=== PATIENT | female | born 2000 | race Caucasian/White ===

== ENCOUNTER 2021-02-10 21:51 | Emergency (ER) | payer BC ==
--- OUTSIDE RECORDS SUMMARY | 2021-02-10 21:53 | XMS REPORT | Continuity of Care Document ---
:2000 Author Organization [facility] t Address [address] [place] [address] Care Team Providers Name Role Phone Blas Yuliana LUU Primary Care Physician Miguel ARENAS Attending Clinician Payers Payer Name Policy Type Policy Number Effective Date Expiration Date S ource Problems Condition Condition Condition Status Onset Resolution Last Treating Co mments Source Name Details Category Date Date Treatment Clinician Date Encounter Encounter Disease Active Uni vers for for 10-04 ity of [place] of 00 Medical contracept contracept Br anch beckie pills beckie pills Screening Screening Disease Active Uni vers examinatio examinatio 10-04 it y of n for STD n [place] ([place] (sexually 00 Medi vivi transmitte transmitte Br anch d disease) d disease) Allergies, Adverse Reactions, Alerts This patient has no known allergies or adverse reactions. Social History Social Habit Start Date Stop Date Quantity Comments Source Exposure to Not sure [facility] SARS-CoV-2 [facility] (event) [place] Tobacco use and 2020-10-04 2020-10-04 Never used Universit y of exposure 00:00:00 00:00:00 [facility] Alcohol intake 2020-10-04 2020-10-04 Ex-drinker [facility] 00:00:00 00:00:00 (finding) [facility] Sex Assigned At [birth year] Universit y of 00:00:00 00:00:00 [facility] Smoking Status Start Date Stop Date Source Never smoker [facility] Medications Ordered Filled Start Stop Current Ordering Indication Dosage Frequency Signature Comments Components Source Medication Medication Date Date Medication? Clinician (SIG) Name Name amoxicillin Yes [id number] 500mg Take 1 Univers 500 mg 9-05 capsule by ity of capsule 00:00: mouth 3 [place] 00 (three) Medical times Branch daily. phenazopyri Yes [id number] 200mg Take 1 Univers dine 200 mg 9-05 tablet by ity of tablet 00:00: mouth 3 [place] 00 (three) Medical times Branch daily. norgestimat Yes [id number] 1{tbl} Take 1 Univers e-ethinyl 5-04 tablet by ity o f estradioL 00:00: mouth [place] (TRI-LO-SPR 00 daily. Medica l INTEC) [place] 0.18/0.215/ 0.25 mg-25 mcg tablet Vital Signs Vital Name Observation Time Observation Value Comments Source Systolic blood 2021-02-05 18:01:00 122 mm[Hg] Univer sity of [facility] Diastolic blood 2021-02-05 18:01:00 76 mm[Hg] [facility] rate 2021-02-05 18:01:00 76 /min [facility] Body temperature 2021-02-05 18:01:00 36.94 [facility] Respiratory rate 2021-02-05 18:01:00 18 /min [facility] hospital Body weight 2021-02-05 18:01:00 58.968 kg [facility] Oxygen saturation in 2021-02-05 18:01:00 99 /min [facility] Arterial blood by [facility] Pulse oximetry Branch Procedures Procedure Date / Time Performed Performing Clinician Ryann esteves ASSIGNMENT OF BENEFITS 2021-02-05 18:54:10 Doctor Unassigned, No [facility] POCT TEST 2021-02-05 18:07:00 Nathen Rivera [facility] URINALYSIS 2021-02-05 18:06:00 Nathen Rivera [place] [facility] NOTICE OF PRIVACY 2021-02-05 18:05:55 Doctor Unassigned, No Univ [facility] PRACTICES Name Medical Branch CONSENT/REFUSAL FOR 2021-02-05 17:57:03 Doctor Unassigned, No [facility] AND Name Medical Branch TREATMENT Encounters Start End Encounter Admission Attending Care Care Encounter Source Date/Time Date/Time Type Type Clinicians Facility Department ID 2021-02-05 2021-02-05 Emergency Rivera, [facility] [id number] [facility] 13:08:00 13:57:00 Nathen Herrera [id number] i ty [facility] [id number] [facility] [id number] [facility] 084 Branch Results Test Description Test Time Test Comments Results Result Comments Source URINALYSIS 2021-02-05 18:40:20 Test Item Value Reference Range Interpretation Comme nts APPEARANCE (test code = Hazy Clear A 5380751298) COLOR (test code = 0399363252) Yellow Yellow PH (test code = 0681618434) 4.8-8.0 SP GRAVITY (test code = 1.003-1.030 H 9071510450) GLU U QUAL (test code = Normal Normal 3869791246) BLOOD (test code = 5300554564) 1+ Negative A KETONES (test code = 3904885090) Negative Negative PROTEIN (test code = 2887-8) 30 mg/dL Negative A UROBILIN (test code = Normal Normal 8976602587) BILIRUBIN (test code = Negative Negative 6375950382) NITRITE (test code = 0182322657) Negative Negative LEUK SAHARA (test code = 250/uL Negative A 5245712735) RBC/HPF (test code = 0429856328) See_Comment H [Automated message] The system which ge nerated this result transmit sammie reference range: 0 - 3 HP F. The reference range was not used to interpret th is result as normal/abnormal . WBC/HPF (test code = 1497630726) See_Comment H [Automated message] The system which ge nerated this result transmit sammie reference range: 0 - 5 HP F. The reference range was not used to interpret th is result as normal/abnormal . BACTERIA (test code = Few Negative A 1529803061) MUCOUS (test code = 3802468588) Marked Negative LPF A AMORPHOUS (test code = Rare Rare HPF 4007788059) SQ EPITH (test code = HPF 8615642807) Lab Interpretation (test code = Abnormal 84198-6) [id number] 18:07:00 Test Item Value Reference Range Interpretation Comments POCT PREG (test code = 1605) negative On board controls acceptable with present C Line (test code = 3574) POCT PREG LOT # (test code = 3575) [id number] POCT PREG TEST DATE (test 06/02/2022 code = 3576) Lab Interpretation (test code = Normal 07406-8) [facility]
--- NOTE | 2021-02-10 23:40 | ER ---
Nurse's Notes [facility] Name: Edita Matos Age: 20 yrs Sex: Female : 2000 Arrival Date: 02/10/2021 Time: 21:54 Bed Waiting Private MD: Diagnosis: Coronavirus infection, unspecified Presentation: 02/10 22:21 Chief complaint: Patient states: she has symptoms of Covid loss of smell and taste, bb stuffy nose, body aches x 5 days. Coronavirus screen: Client presents with at least one sign or symptom that may indicate coronavirus-19. Standard/surgical mask placed on the client. Ebola Screen: No symptoms or risks identified at this time. Initial Sepsis Screen: Does the patient meet any 2 criteria? No. Patient's initial sepsis screen is negative. Does the patient have a suspected source of infection? No. Patient's initial sepsis screen is negative. Risk Assessment: Do you want to hurt yourself or someone else? Patient reports no desire to harm self or others. Onset of symptoms was February 05, 2021. 22:21 Method Of Arrival: Ambulatory 22:21 Acuity: DON 4 bb Triage Assessment: 22:22 General: Appears in no apparent distress. Behavior is calm, cooperative. Pain: Denies bb pain. EENT: Reports nasal congestion. Neuro: Level of Consciousness is awake, alert, obeys commands, Oriented to person, place, time, situation. Cardiovascular: Capillary refill < 3 seconds Patient's skin is warm and dry. Respiratory: Respiratory effort is even, unlabored, Respiratory pattern is regular. GI: No signs and/or symptoms were reported involving the gastrointestinal system. Derm: Skin is pink, warm \T\ dry. Musculoskeletal: Circulation, motion, and sensation intact. Reports body aches. 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 - Social history:: Smoking status: Patient denies any tobacco usage or history of. Screenin:37 Abuse screen: Denies threats or abuse. Nutritional screening: No deficits noted. bb Tuberculosis screening: No symptoms or risk factors identified. Fall Risk None identified. Assessment: 23:34 Reassessment: Patient is alert, oriented x 3, equal unlabored respirations, skin bb warm/dry/pink. pt seen by Wally MAGANA in triage for results and recommendations. Pt refused administration of Regen-Cov verbalized understanding of and agrees to plan of care discharge instructions given. Vital Signs: 22:21 BP 120 / 85; Pulse 94; Resp 18 S; Temp 98.4(O); Pulse Ox 100% on R/A; Weight 58.97 kg bb (R); Height 5 ft. 2 in. (157.48 cm) (R); 23:36 BP 118 / 80; Pulse 83; Resp 18 S; Pulse Ox 100% on R/A; bb 22:21 Body Mass Index 23.78 (58.97 kg, 157.48 cm) bb ED Course: 21:54 Patient arrived in ED. 21:55 Wally Phillips PA is PHCP. [facility] 21:55 Abelardo Tam MD is Attending Physician. [facility] 22:22 Triage completed. bb 22:22 Arm band placed on Patient placed in waiting room, Patient notified of wait time. Covid bb and flu swab sent to lab. 22:24 COVID swab sent to lab. Flu and/or RSV swab sent to lab. bb 23:37 Patient has correct armband on for positive identification. bb 23:37 No provider procedures requiring assistance completed. Patient did not have IV access bb during this emergency room visit. Administered Medications: No medications were administered Outcome: 23:37 Discharged to home ambulatory. bb 23:37 Condition: stable 23:37 Discharge instructions given to patient, Instructed on discharge instructions, follow up and referral plans. Demonstrated understanding of instructions, follow-up care. 23:39 Discharge ordered by . [facility] 23:53 Patient left the ED. bb Signatures: Wally Phillips PA PA jmm Ballard, Brenda, RN RN Kathy Meza
--- NOTE | 2021-02-10 23:40 | EDPHYS ---
Physician Documentation [facility] Name: Edita Matos Age: 20 yrs Sex: Female : 2000 Arrival Date: 02/10/2021 Time: 21:54 Bed Waiting Private MD: ED Physician Abelardo Tam HPI: 02/10 23:37 This 20 yrs old Female presents to ER via Ambulatory with complaints of S/S jmm OF COVID. 23:37 The patient or guardian reports cough. Onset: The symptoms/episode began/occurred jmm gradually, 5 day(s) ago. Associated signs and symptoms: Pertinent positives: fever, nausea. The patient has not experienced similar symptoms in the past. States symptoms developed approximately 5 days ago. Patient developed concern after she lost her sense of smell. Patient is unimmunized for coronavirus. 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 - Social history:: Smoking status: Patient denies any tobacco usage or history of. ROS: 23:37 Constitutional: Positive for body aches, chills. jmm 23:37 ENT: Positive for sinus congestion. 23:37 Respiratory: Positive for cough. 23:37 All other systems are negative. Exam: 23:37 Constitutional: This is a well developed, well nourished patient who is awake, alert, jmm and in no acute distress. Head/Face: atraumatic. Eyes: EOMI, no conjunctival erythema appreciated ENT: Moist Mucus Membranes Neck: Trachea midline, Supple Chest/axilla: Normal chest wall appearance and motion. Cardiovascular: Regular rate and rhythm. No edema appreciated Respiratory: Normal respirations, no respiratory distress appreciated Abdomen/GI: Non distended, soft Back: Normal ROM Skin: General appearance color normal MS/ Extremity: Moves all extremities, no obvious deformities appreciated, no edema noted to the lower extremities Neuro: Awake and alert, normal gait Psych: Behavior is normal, Mood is normal, Patient is cooperative and pleasant Vital Signs: 22:21 BP 120 / 85; Pulse 94; Resp 18 S; Temp 98.4(O); Pulse Ox 100% on R/A; Weight 58.97 kg bb (R); Height 5 ft. 2 in. (157.48 cm) (R); 23:36 BP 118 / 80; Pulse 83; Resp 18 S; Pulse Ox 100% on R/A; bb 22:21 Body Mass Index 23.78 (58.97 kg, 157.48 cm) MDM: 23:37 Patient medically screened. [facility] 23:38 Data reviewed: vital signs, nurses notes. Counseling: I had a detailed discussion with jm the patient and/or guardian regarding: the historical points, exam findings, and any diagnostic results supporting the discharge/admit diagnosis, lab results, the need for outpatient follow up, to return to the emergency department if symptoms worsen or persist or if there are any questions or concerns that arise at home. ED course: Patient is alert nontoxic in appearance in the ED. No signs respite distress. Patient declined monoclonal antibodies/Regeneron. Patient was given strict return precautions. Patient understood and agrees plan of care. Patient advised to quarantine for another 5 days.. 02/10 22:24 Order name: Flu bb 02/10 23:43 Order name: COVID-19/FLU A+B EDMS Administered Medications: No medications were administered Disposition Summary: 02/10/21 23:39 Discharge Ordered Location: Home [facility] Condition: Stable [facility] Diagnosis - Coronavirus infection, unspecified [facility] Followup: [facility] - With: Private Physician - When: 5 - 6 days - Reason: Recheck today's complaints, Continuance of care, Re-evaluation by your physician Discharge Instructions: - Discharge Summary Sheet [facility] - COVID-19 [facility] Forms: - Medication Reconciliation Form [facility] - Thank You Letter [facility] - Antibiotic Education [facility] - Prescription Opioid Use [facility] Prescriptions: - albuterol sulfate 90 mcg/actuation Inhalation HFA aerosol inhaler - inhale 2 puff by INHALATION route every 4 hours; 1 Pump; Refills: 0, Product [facility] Selection Permitted Addendum: 02/13/2021 06:43 Co-signature as Attending Physician, Abelardo Tam MD I agree with the assessment and t w4 plan of care. Signatures: Dispatcher [employer] EDMS Wally Phillips PA PA jmm Ballard, Brenda, RN RN Abelardo Ibarra MD MD tw4 Corrections: (The following items were deleted from the chart) 02/10 22:38 22:06 CORONAVIRUS+ ordered. EDMS EDMS 22:39 22:25 Influenza Screen (A ordered. EDMS EDMS
[2021-02-10 23:43] LABS: SARS-COV-2 RT PCR POSITIVE (NEGATIVE)
[2021-02-10 23:57] VITALS: TEMP 98.4; O2SAT 100
[2021-02-10 23:58] VITALS: BP 118/80
== END 2021-02-10 23:53 | disposition home or self-care (01) ==
LOC: ER 21:51
DX: U07.1 COVID-19 (principal)
CPT/HCPCS: 0240U; 99283

== ENCOUNTER 2021-10-11 09:13 | Emergency (ER) | payer BC ==
--- OUTSIDE RECORDS SUMMARY | 2021-10-11 09:16 | XMS REPORT | Continuity of Care Document ---
:2000 Author Organization [facility] t Address [address] [place] [address] Care Team Providers Name Role Phone Yuliana Aguirre Primary Care Physician Yuliana Aguirre Attending Clinician Ultrasound Attending Clinician Unavailable Nella Rowland MD Attending Clinician NELLA ROWLAND Attending Clinician Unavailable Yuliana BLAS Attending Clinician Unavailable Payers Payer Name Policy Type Policy Number Effective Date Expiration Date S ource Problems Condition Condition Condition Status Onset Resolution Last Treating Co mments Source Name Details Category Date Date Treatment Clinician Date Supervisio Supervisio Disease Active N PI:183 n of high n of high 18 1318 781 risk risk 00:00: , , 00 antepartum antepartum Primigravi Primigravi Disease Active N PI:183 da in da in 09-18 [id number] first first 00:00: trimester trimester 00 Encounter Encounter Disease Active NPI :183 for for 10-04 [id number] surveillan surveillan 00:00: ce of ce of 00 contracept contracept beckie pills beckie pills Screening Screening Disease Active NPI :183 examinatio examinatio 10-04 [id number] n for STD n for STD 00:00: (sexually (sexually 00 transmitte transmitte d disease) d disease) Allergies, Adverse Reactions, Alerts Allergy Allergy Status Severity Reaction(s) Onset Inactive Treating Comm ents Source Name Type Date Date Clinician NO KNOWN Drug Active NPI:183 ALLERGIE Class [id number] S Social History Social Habit Start Date Stop Date Quantity Comments Source ASSERTION 2021-08-06 00:00:00 Exposure to 2021-08-19 2021-09-18 Not sure NPI:[id number] SARS-CoV-2 (event) 00:00:00 10:25:00 Alcohol intake 2021-09-18 2021-09-18 Ex-drinker NPI:[id number] 00:00:00 00:00:00 (finding) Tobacco use and 2020-10-04 2020-10-04 Never used NPI:[id number] exposure 00:00:00 00:00:00 Sex Assigned At [birth year] NPI:[id number] 00:00:00 00:00:00 Smoking Status Start Date Stop Date Source Never smoker Medications Ordered Filled Start Stop Current Ordering Indication Dosage Frequency Signature Comments Components Source Medication Medication Date Date Medication? Clinician (SIG) Name Name Yes [id number] 1{packe Take 1 NPI:183 vit 4-18 t} Packet by [id number] 33-iron-fol 00:00: mouth ic-dha 00 daily. (SELECT-OB + DHA) 29 mg iron-1 mg -250 mg combo pack Yes [id number] 1{packe Take 1 NPI:183 vit 4-18 t} Packet by [id number] 33-iron-fol 00:00: mouth ic-dha 00 daily. (SELECT-OB + DHA) 29 mg iron-1 mg -250 mg combo pack Yes [id number] 1{packe Take 1 NPI:183 vit 4-18 t} Packet by [id number] 33-iron-fol 00:00: mouth ic-dha 00 daily. (SELECT-OB + DHA) 29 mg iron-1 mg -250 mg combo pack amoxicillin Yes [id number] 500mg Take 1 NPI:183 500 mg 9-05 capsule by [id number] capsule 00:00: mouth 3 00 (three) times daily. phenazopyri Yes [id number] 200mg Take 1 NPI:183 dine 200 mg 9-05 tablet by [id number] tablet 00:00: mouth 3 00 (three) times daily. amoxicillin 2020-0 Yes [id number] 500mg Take 1 NPI:183 500 mg 9-05 capsule by [id number] capsule 00:00: mouth 3 00 (three) times daily. phenazopyri 2020-0 Yes [id number] 200mg Take 1 NPI:183 dine 200 mg 9-05 tablet by [id number] tablet 00:00: mouth 3 00 (three) times daily. amoxicillin 2020-0 Yes [id number] 500mg Take 1 NPI:183 500 mg 9-05 capsule by [id number] capsule 00:00: mouth 3 00 (three) times daily. phenazopyri 2020-0 Yes [id number] 200mg Take 1 NPI:183 dine 200 mg 9-05 tablet by [id number] tablet 00:00: mouth 3 00 (three) times daily. norgestimat 2020-0 Yes [id number] 1{tbl} Take 1 NPI:183 [place]ethinyl [place] [id number] estradioL 00:00: mouth (TRI-LO-SPR 00 daily. INTEC) 0.18/0.215/ 0.25 mg-25 mcg tablet norgestimat 2020-0 Yes [id number] 1{tbl} Take 1 NPI:183 e[place]ethinyl 5-[place] [id number] estradioL 00:00: mouth (TRI-LO-SPR 00 daily. INTEC) 0.18/0.215/ 0.25 mg-25 mcg tablet norgestimat 2020-0 Yes [id number] 1{tbl} Take 1 NPI:183 [place]-ethinyl 5-[place] [id number] estradioL 00:00: mouth (TRI-LO-SPR 00 daily. INTEC) 0.18/0.215/ 0.25 mg-25 mcg tablet Vital Signs Vital Name Observation Time Observation Value Comments Source Systolic blood pressure 2021-09-18 15:26:00 111 mm[Hg] Diastolic blood 2021-09-18 15:26:00 74 mm[Hg] NPI:1 [id number] pressure Heart rate 2021-09-18 15:26:00 93 /min NPI:[id number] Body temperature 2021-09-18 15:26:00 36.61 Karley Respiratory rate 2021-09-18 15:26:00 16 /min Body height 2021-09-18 15:26:00 154.9 cm NPI:[id number] Body weight 2021-09-18 15:26:00 55.883 kg NPI:[id number] BMI 2021-09-18 15:26:00 23.28 kg/m2 NPI:[id number] Procedures Procedure Date / Time Performed Performing Clinician Sourc e POCT TEST 2021-09-18 15:28:00 Savana Blas NPI:1 [id number] POCT URINALYSIS W/O 2021-09-18 15:28:00 Savana Blas NPI:1 [id number] SPECIFIC GRAVITY Encounters Start End Encounter Admission Attending Care Care Encounter Source Date/Time Date/Time Type Type Clinicians Facility Department ID 2021-10-10 2021-10-10 Abstract Alan [facility] [id number] NPI:183 00:00:00 00:00:00 Savana Bridges MECHANICAL RELIABILITY ENGINEER [id number] [facility] [id number] MATERNAL [id number] & CHILD 107 [facility] 2021-10-09 2021-10-09 Key Account Coordinator [facility] [id number] NPI:183 14:15:00 14:45:00 Visit Lilo Reza MECHANICAL RELIABILITY ENGINEER 350.1. 13.10 [id number] [facility] [id number] MATERNAL [id number] & CHILD 369 [facility] 2021-10-09 2021-10-09 Outpatient R [facility] [id number] NPI:183 14:15:00 14:15:00 [id number] 2021-10-09 2021-10-09 Outpatient P CARMEN [facility] [id number] NPI:183 14:15:00 14:15:00 GABRIEL 13 [id number] LILO Mejia 2021-09-18 2021-09-18 [facility] [id number] NPI:183 10:00:00 11:17:57 Savana Bridges MECHANICAL RELIABILITY ENGINEER [id number] [id number] Visit [facility] [id number] MATERNAL [id number] & CHILD 107 [facility] 2021-09-18 2021-09-18 [facility] [id number] NPI:183 10:00:00 11:17:57 [id number] Results Test Description Test Time Test Comments Results Result Comments Source POCT TEST 2021-09-18 15:28:00 Test Item Value Reference Range Interpretation Comme nts POCT PREG (test code = 1605) Positive On board controls acceptable with C Line (test code = 3574) Yes POCT PREG LOT # (test code = 3575) POCT PREG TEST DATE (test code = 3576) NPI:[id number] URINALYSIS W/O SPECIFIC [id number] 15:28:00 Test Item Value Reference Range Interpretation Comments POCT PH U (test code = 3254) 6 mg/dl 5-8 POCT U LEUK EST (test code = 2+ Negative - Negative 3263) POCT U NIT (test code = 3262) pos Negative - Negative POCT U PROT (test code = 3259) 1+ Negative - Negative POCT U GLU (test code = 3256) neg Negative - Negative POCT U KETONE (test code = 3258) neg Negative - Negative POCT U BLD (test code = 3257) neg Negative - Negative
[2021-10-11] MEDS ORDERED: DIPHENHYDRAMINE 50 MG/ML VIAL ONE (10:08)
[2021-10-11] MEDS ORDERED: FAMOTIDINE 20 MG/2 ML VIAL IV ONE (10:08)
[2021-10-11] MEDS ORDERED: METOCLOPRAMIDE 10 MG/2mL INJ ONE (10:08)
[2021-10-11] MEDS ORDERED: NA CHLORIDE 0.9% 1,000 ML ONE (10:09)
[2021-10-11 10:16] LABS: Absolute Lymphocytes (CBC) 0.7 K/uL (0.7-4.9); Hematocrit 34.7 % (36.0-45.0); MPV 7.2 fL (7.6-11.3); RBC Red Blood Cell Count 4.51 M/uL (3.86-4.86)
[2021-10-11 10:46] LABS: Albumin 3.6 g/dL (3.4-5.0); Bilirubin Total 0.6 mg/dL (0.2-1.0); Potassium 3.7 mmol/L (3.5-5.1); Protein, Total 7.4 g/dL (6.4-8.2)
--- NOTE | 2021-10-11 10:58 | RAD REPORT ---
EXAM DESCRIPTION: US - Abdomen Exam Limited - 10/11/2021 9:47 am CLINICAL HISTORY: epigastric pain, vomiting COMPARISON: No comparisons FINDINGS: The gallbladder demonstrates no gallstones. A small amount of sludge is present in the gal lbladder. No pericholecystic fluid or gallbladder wall thickening. The common bile duct is normal eryn suring 5 mm. The liver demonstrates no findings of intrahepatic biliary dilatation. IMPRESSION: Small amount of gallbladder sludge noted.
[2021-10-11 11:36] LABS: Urine Blood Negative (Negative); Urine Glucose Negative (Negative); Urine Protein 1+ (Negative)
--- NOTE | 2021-10-11 12:13 | EDPHYS ---
Physician Documentation [facility] Name: Edita Matos Age: 20 yrs Sex: Female : 2000 Arrival Date: 10/11/2021 Time: 09:16 Bed 16 Private MD: ED Physician Jose Franks HPI: 10/11 09:35 This 20 yrs old Female presents to ER via Ambulatory with complaints of 11wks , jmm Abdominal Pain, Back Pain. 09:35 The patient presents with abdominal pain. Onset: The symptoms/episode began/occurred jmm gradually, 1 day(s) ago. The symptoms radiate to back. Associated signs and symptoms: Pertinent positives: nausea and vomiting, Pertinent negatives: diarrhea, vaginal discharge. The symptoms are described as achy, crampy. This is a 20 year old female with no chronic medical conditions that presents to the ED with complaints of epigastric abdominal pain, nausea, vomiting beginning last night. Worsening today. Denies lower abdominal pain, pelvic pain, lower back pain, or vaginal bleeding. Denies dysuria. 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 - Social history:: Smoking status: Patient denies any tobacco usage or history of. ROS: 09:35 Constitutional: Negative for fever, chills, and weight loss, Cardiovascular: Negative jmm for chest pain, palpitations, and edema, Respiratory: Negative for shortness of breath, cough, wheezing, and pleuritic chest pain. 09:35 Abdomen/GI: Positive for abdominal pain. 09:35 Back: Positive for pain with movement. 09:35 All other systems are negative. Exam: 09:35 Constitutional: This is a well developed, well nourished patient who is awake, alert, jmm and in no acute distress. Head/Face: atraumatic. Eyes: EOMI, no conjunctival erythema appreciated ENT: Moist Mucus Membranes Neck: Trachea midline, Supple Chest/axilla: Normal chest wall appearance and motion. Cardiovascular: Regular rate and rhythm. No edema appreciated Respiratory: Normal respirations, no respiratory distress appreciated 09:35 Back: Normal ROM Skin: General appearance color normal MS/ Extremity: Moves all extremities, no obvious deformities appreciated, no edema noted to the lower extremities Neuro: Awake and alert Psych: Behavior is normal, Mood is normal, Patient is cooperative and pleasant 09:35 Abdomen/GI: Inspection: abdomen appears normal, Bowel sounds: normal, Palpation: soft, moderate abdominal tenderness, in the right upper quadrant and left upper quadrant. Vital Signs: 09:27 BP 118 / 90; Pulse 104; Resp 19; Temp 98.7(O); Pulse Ox 98% on R/A; Weight 55.79 kg; 7 Height 5 ft. 1 in. (154.94 cm); Pain 7/10; 10:00 BP 115 / 83; Pulse 92; Resp 18; Pulse Ox 99% ; ww 12:15 BP 116 / 83; Pulse 91; Resp 18; Pulse Ox 99% on R/A; ww 09:27 Body Mass Index 23.24 (55.79 kg, 154.94 cm) [facility] MDM: 09:19 Patient medically screened. [facility] 12:11 Data reviewed: vital signs, nurses notes. Counseling: I had a detailed discussion with [facility] the patient and/or guardian regarding: the historical points, exam findings, and any diagnostic results supporting the discharge/admit diagnosis, lab results, radiology results, the need for outpatient follow up, to return to the emergency department if symptoms worsen or persist or if there are any questions or concerns that arise at home. ED course: Patient is alert andnon toxic in appearance in the ED. US is negative. Patient advised to follow up with her ob for further evaluation. Patient otherwise given strict return precautions. patient understood and agrees with the plan of care. . 10/11 09:29 Order name: CBC with Diff; Complete Time: 10:18 [facility] 10/11 09:29 Order name: CMP; Complete Time: 10:46 [facility] 10/11 09:29 Order name: Lipase; Complete Time: 10:46 [facility] 10/11 09:30 Order name: US Abdomen Limited; Complete Time: 11:01 [facility] 10/11 11:36 Order name: Urine Dipstick-Ancillary; Complete Time: 11:58 [facility] 10/11 11:40 Order name: Urine --Ancillary (enter results); Complete Time: 12:11 10/11 09:29 Order name: IV Saline Lock; Complete Time: 10:05 [facility] 10/11 09:29 Order name: Labs collected and sent; Complete Time: 10:05 [facility] 10/11 09:30 Order name: Urine Dipstick-Ancillary (obtain specimen); Complete Time: 11:38 jm Administered Medications: 09:31 CANCELLED (different medication usedd): Zofran (Ondansetron) 4 mg IVP once; over 2 jmm minutes 10:10 Drug: NS 0.9% 1000 ml Route: IV; Rate: 1 bolus; Site: right antecubital; ww 10:11 Drug: Pepcid (famotidine) 20 mg Route: IVP; Infused Over: 2 mins; Site: right ww antecubital; 10:15 Drug: diphenhydrAMINE 12.5 mg Route: IVP; Site: right antecubital; ww 10:20 Drug: Reglan (metoCLOPramide) 20 mg {Note: placed in NS bolus .} Route: IVP; Site: ww right antecubital; Disposition: 13:12 Co-signature as Attending Physician, Jose PASTOR was immediately available on-site ms3 in the Emergency Department for consultation in the care of the patient.. Disposition Summary: 10/11/21 12:13 Discharge Ordered Location: Home [facility] Condition: Stable [facility] Diagnosis - Epigastric pain jmm - UTI/ Urinary tract infection, site not specified [facility] Followup: [facility] - With: Private Physician - When: 2 - 3 days - Reason: Recheck today's complaints, Continuance of care, Re-evaluation by your physician Discharge Instructions: - Discharge Summary Sheet [facility] - Abdominal Pain During jm - and Urinary Tract Infection [facility] Forms: - Medication Reconciliation Form [facility] - Thank You Letter [facility] - Antibiotic Education [facility] - Prescription Opioid Use [facility] Prescriptions: - ondansetron 4 mg Oral tablet,disintegrating - take 1 tablet by ORAL route every 4-6 hours As needed; 30 tablet; Refills: 0, [facility] Product Selection Permitted - Cephalexin 500 mg Oral Capsule - take 1 capsule by ORAL route every 8 hours for 10 days; 30 capsule; Refills: 0, [facility] Product Selection Permitted - Pepcid 20 mg Oral Tablet - take 1 tablet by ORAL route every 12 hours for 10 days; 20 tablet; Refills: 0, [facility] Product Selection Permitted - dicyclomine 20 mg Oral Tablet - take 1 tablet by ORAL route 3 times per day As needed; 20 tablet; Refills: 0, [facility] Product Selection Permitted Signatures: Dispatcher [employer] aWlly Jewell PA PA jmm Leal, Jahala, RN RN jl7 Jose Franks DO DO ms3 Mara Dent RN RN ww Corrections: (The following items were deleted from the chart) 09:31 09:29 Zofran (Ondansetron) 4 mg IVP once; over 2 minutes ordered. arlette chong
--- NOTE | 2021-10-11 12:13 | ER ---
Nurse's Notes [facility] Name: Edita Matos Age: 20 yrs Sex: Female : 2000 Arrival Date: 10/11/2021 Time: 09:16 Bed 16 Private MD: Diagnosis: Epigastric pain;UTI/ Urinary tract infection, site not specified Presentation: 10/11 09:27 Chief complaint: Patient states: Upper back pain to upper abdominal pain, last BM this jl7 morning and hard. Reports feeling bloated and constipated. Coronavirus screen: At this time, the client does not indicate any symptoms associated with coronavirus-19. Ebola Screen: No symptoms or risks identified at this time. Initial Sepsis Screen: Does the patient meet any 2 criteria? No. Patient's initial sepsis screen is negative. Does the patient have a suspected source of infection? No. Patient's initial sepsis screen is negative. Risk Assessment: Do you want to hurt yourself or someone else? Patient reports no desire to harm self or others. Onset of symptoms was October 09, 2021. 09:27 Method Of Arrival: Ambulatory 7 09:27 Acuity: DON 3 jl7 Triage Assessment: 09:28 General: Appears in no apparent distress. uncomfortable, Behavior is calm, cooperative, jl7 appropriate for age. Pain: Complains of pain in right upper quadrant and left upper quadrant Pain currently is 7 out of 10 on a pain scale. GI: Reports constipation. 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 - Social history:: Smoking status: Patient denies any tobacco usage or history of. Screenin:22 Abuse screen: Denies threats or abuse. Denies injuries from another. Nutritional ww screening: No deficits noted. Tuberculosis screening: No symptoms or risk factors identified. Fall Risk None identified. Assessment: 10:21 General: Appears in no apparent distress. comfortable, Behavior is calm, cooperative. ww Neuro: Level of Consciousness is awake, alert, obeys commands, Oriented to person, place, time, situation, Moves all extremities. Speech is normal. Cardiovascular: Patient's skin is warm and dry. Respiratory: Airway is patent Respiratory effort is even, unlabored, Respiratory pattern is regular, symmetrical. GI: Abdomen is non-distended, Abd is soft X 4 quads. : Reports inability to void. Derm: Skin is intact, is healthy with good turgor. Musculoskeletal: No signs and/or symptoms reported regarding the musculoskeletal system. 11:35 Reassessment: Patient appears in no apparent distress at this time. No changes from ww previously documented assessment. Patient and/or family updated on plan of care and expected duration. Pain level reassessed. Patient is alert, oriented x 3, equal unlabored respirations, skin warm/dry/pink. 12:14 Reassessment: Patient appears in no apparent distress at this time. No changes from ww previously documented assessment. Patient and/or family updated on plan of care and expected duration. Pain level reassessed. Patient is alert, oriented x 3, equal unlabored respirations, skin warm/dry/pink. Vital Signs: 09:27 BP 118 / 90; Pulse 104; Resp 19; Temp 98.7(O); Pulse Ox 98% on R/A; Weight 55.79 kg; jl7 Height 5 ft. 1 in. (154.94 cm); Pain 7/10; 10:00 BP 115 / 83; Pulse 92; Resp 18; Pulse Ox 99% ; ww 12:15 BP 116 / 83; Pulse 91; Resp 18; Pulse Ox 99% on R/A; ww 09:27 Body Mass Index 23.24 (55.79 kg, 154.94 cm) 7 ED Course: 09:16 Patient arrived in ED. mr 09:16 Wally Phillips PA is PHCP. jmm 09:16 Jose Franks DO is Attending Physician. jmm 09:21 Mara Dent, RN is Primary Nurse. ww 09:28 Triage completed. jl7 09:28 Arm band placed on right wrist. jl7 09:48 US Abdomen Limited In Process Unspecified. EDMS 10:04 Patient has correct armband on for positive identification. Placed in gown. Bed in low mh5 position. Call light in reach. Side rails up X 1. Warm blanket given. Pulse ox on. NIBP on. 10:04 Initial lab(s) drawn, by [facility], sent to lab. Inserted saline lock: 22 gauge in left [facility] antecubital area, using aseptic technique. Blood collected. 10:05 CBC with Diff Sent. [facility] 10:05 CMP Sent. [facility] 10:05 Lipase Sent. [facility] 10:21 Inserted saline lock: 20 gauge in right antecubital area, using aseptic technique. ww 12:15 No provider procedures requiring assistance completed. IV discontinued, intact, ww bleeding controlled, No redness/swelling at site. Pressure dressing applied. Administered Medications: 09:31 CANCELLED (different medication usedd): Zofran (Ondansetron) 4 mg IVP once; over 2 jmm minutes 10:10 Drug: NS 0.9% 1000 ml Route: IV; Rate: 1 bolus; Site: right antecubital; ww 10:11 Drug: Pepcid (famotidine) 20 mg Route: IVP; Infused Over: 2 mins; Site: right ww antecubital; 10:15 Drug: diphenhydrAMINE 12.5 mg Route: IVP; Site: right antecubital; ww 10:20 Drug: Reglan (metoCLOPramide) 20 mg {Note: placed in NS bolus .} Route: IVP; Site: ww right antecubital; Outcome: 12:13 Discharge ordered by . [facility] 12:15 Discharged to home ambulatory. ww 12:15 Condition: stable 12:21 Discharge instructions given to patient, Instructed on discharge instructions, follow ww up and referral plans. medication usage, safety practices, Demonstrated understanding of instructions, follow-up care, medications, Prescriptions given X 4. 12:21 Patient left the ED. Signatures: Dispatcher [employer] EDMS Wally Phillips PA PA jmm Rivera, Mary mr FabianAndreea [address] RN RN josie7 Mara Dent, ANDREINA RN ww
[2021-10-11 12:48] VITALS: TEMP 98.7
[2021-10-11 12:49] VITALS: O2SAT 99
[2021-10-11 12:54] VITALS: BP 116/83
== END 2021-10-11 12:21 | disposition home or self-care (01) ==
LOC: ER 09:13
DX: O23.41 Unspecified infection of urinary tract in pregnancy, first trimester (principal); N39.0 Urinary tract infection, site not specified; Z3A.11 11 weeks gestation of pregnancy
CPT/HCPCS: 85025; 36415; 81025; 81003; 83690; 80053; 76705; 96375; 96374; 99284; J2765; J1200; J7030; J3490